=== PATIENT | female | born 2000 | race Caucasian/White ===

== ENCOUNTER 2020-03-08 09:31 | Emergency (ER) | payer MEDICAID, OTHER, SELFPAY ==
[2020-03-08 09:36] VITALS: BP 113/90; PULSE 127; TEMP 37.2; O2SAT 99
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
[2020-03-08 10:48] VITALS: PULSE 88
[2020-03-08 10:54] LABS: Bilirubin Negative (Negative); Blood Negative (Negative); Clarity Clear (Clear); Glucose Negative (Negative); Ketones Negative (Negative); Leukocyte Esterase Negative (Negative); Nitrite Negative (Negative); Specific Gravity 1.025 (1.005-1.025); Urobilinogen 0.2 EU/dL (Up TO 0.2)
[2020-03-08] MEDS: cefTRIAXone 250 MG VIAL IM (14:31)
[2020-03-08] MEDS: Levonorgestrel 1.5 MG KIT/PACKET PO (14:32)
[2020-03-08] MEDS: Azithromycin 250 MG TAB 1000 MG PO (14:32)
[2020-03-08] MEDS: metroNIDAZOLE 500 MG TAB 2000 MG PO (14:32)
[2020-03-08 14:55] VITALS: BP 112/74; PULSE 85; O2SAT 99
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
== END 2020-03-08 15:28 | disposition home or self-care (01) ==
PROVIDERS: Emergency Provider Student in an Organized Health Care Education/Training Program; PCP Family Medicine
DX: T74.21XA Adult sexual abuse, confirmed, initial encounter (principal)
CPT/HCPCS: 81025; 96372; 99284; 81003; J0696